=== PATIENT | female | born 1995 | race Caucasian/White ===

== ENCOUNTER 2017-07-06 09:01 | Day surgery (SDC) | payer OTHER ==
[2017-07-04 15:29] VITALS: BMI 22.1
[~2017-07-06 09:01] MED LIST: LACTATED RINGERS SOLUTION 1,000 ML IV SCH; ONDANSETRON 4 MG/2 ML VIAL IVPUSH PRN; PROMETHAZINE HCL 25 MG/1 ML VIAL IVPUSH PRN; oxyCODONE HCL 5 MG TABLET PO PRN
[2017-07-06] MEDS ORDERED: PROPOFOL 20 ML ONE ×3 (09:20)
[2017-07-06] MEDS ORDERED: ceFAZolin SODIUM 1 GM VIAL ONE (09:47)
[2017-07-06] MEDS ORDERED: ONDANSETRON 4 MG/2 ML VIAL ONE ×3 (09:50→12:27)
[2017-07-06] MEDS ORDERED: DEXAMETHASONE SOD PHOSPHATE 4 MG/1 ML VIAL ONE (09:50)
[2017-07-06] MEDS ORDERED: KETOROLAC TROMETHAMINE 30 MG/1 ML VIAL ONE (09:50)
[2017-07-06] MEDS ORDERED: MIDAZOLAM HCL 2 MG/2 ML SINGLE DOSE VIAL ONE ×2 (09:55→10:01)
[2017-07-06] MEDS ORDERED: DEXAMETHASONE SOD PHOSPHATE/PF 10 MG/ML SDV ONE (09:55)
[2017-07-06] MEDS ORDERED: ROPIVACAINE HCL 0.5% 30ML VIAL ONE (09:55)
[2017-07-06] MEDS ORDERED: SCOPOLAMINE HYDROBROMIDE 1 PATCH PATCH.TD72 ONE (10:01)
[2017-07-06] MEDS ORDERED: ACETAMINOPHEN INJECTION 100 ML IVPB ONE (10:01)
[2017-07-06] MEDS ORDERED: EPINEPHrine 1:1,000 1 MG/1 ML - 30ML VIAL (INJECTION) ONE (10:30)
--- NOTE | 2017-07-06 12:19 | OP ---
Operative Note - Note: Operative Date: 07/06/17 Pre-Operative Diagnosis: Right shoulder pain Operation: Diagnostic right shoulder arthroscopy with synovectomy and bursectomy Post-Operative Diagnosis: Same as Pre-op Surgeon: Giovanni Holland Manager Security: Becca Mariee Anesthesiologist/DISEASE AND INSECT CONTROL BOSS: Beto Wong Anesthesia: Local (block with LMA) Estimated Blood Loss (mls): 20 Fluid Volume Replaced (mls): 1,300 Operative Report Dictated: Yes
--- NOTE | 2017-07-06 12:21 | SURG ---
Surgery [employer] Superintendent Note [employer] Superintendent: Becca Mariee PA-C Date of Service: 07/06/17 Diagnosis: right shoulder pain Procedure: diagnostic right shoulder arthroscopy with burscectomy and synovectomy I was present for the entirety of the operative procedure. For further detail, please refer to operative report. Visit type - Case Type Case Type: Scheduled Admission - Emergency Emergency Visit: No - New patient This patient is new to me today: Yes Date on this admission: 07/06/17
[2017-07-06] MEDS ORDERED: ALBUTEROL SO4 18 GM HFA INHALER IH PRN (12:22)
[2017-07-06 13:59] VITALS: TEMP 98.6
[2017-07-06 14:51] VITALS: BP 108/65; PULSE 82
[2017-07-07] MEDS ORDERED: BUDESONIDE/FORMETEROL FUMARATE 160/4.5 mcg INHALER IH SCH (10:00)
[2017-07-07] MEDS ORDERED: NORETHINDRONE E ESTRADIOL IRON PO SCH (10:00)
--- NOTE | 2017-07-07 11:50 | OP ---
DATE OF OPERATION: 07/06/2017 PREOPERATIVE DIAGNOSIS: Right shoulder pain. POSTOPERATIVE DIAGNOSIS: Right shoulder pain. PROCEDURE: Right shoulder arthroscopy, partial synovectomy, and subacromial decompression. SURGEON: Karina Cowart MD ANESTHESIA: General. POSTOPERATIVE CONDITION: Stable. COMPLICATIONS: None. CORE WINDER MACHINE OPERATOR: BRITTANY Yao. INDICATIONS: This is a pleasant young lady suffering from years of right shoulder pain. Despite MRI, she continued to have labral signs positive on her physical examination. She was treated with extensive physical therapy and multiple courses of oral medications, subacromial injection, which did provide some relief. Having failed to improve, we discussed the option of diagnostic arthroscopy and possible labral repair. I reviewed the surgery in detail including bleeding, infection, neurovascular injury, need for further surgery, postoperative pain and stiffness. We discussed that there was no definite pathology seen on any imaging study. While this is often indicative of no present, it is possible to have a false negative, and that is why the procedure is worth considering. After addressing all the patients and the familys questions and concerns, they voiced understanding and elected to proceed. DESCRIPTION OF PROCEDURE: The patient was brought to the operating room after administration of a regional block in the preoperative holding area. The right upper extremity was prepped and draped in the usual sterile fashion. A preoperative dose of antibiotics was given, and the usual time-out procedure was performed. The preoperative physical examination demonstrated full range of motion of the shoulder. There was a 1+ sulcus sign. There was 1+ anterior drawer. Negative posterior load and shift. Negative jerk test. The standard posterior viewing portal was now established. The arthroscopic was then passed into the glenohumeral joint. Diagnostic arthroscopy was performed. Examination of the humeral surface demonstrated no cartilage lesions. Examination of the glenoid demonstrated no cartilage lesions. There was a thickened band of capsule in the area of the middle glenohumeral ligament, which was attached directly to the labrum. However, there was no troy labral tear seen. An anterior portal was now established. Superior labrum was probed, and while it was somewhat hypermobile, there was no tearing seen. The capsule adjacent to the anterior-superior labrum was somewhat indurated and frayed with some type of irritation or impingement. Utilizing the shaver as well as electrocautery, this was gently debrided. The subscapularis was examined and found to have no tearing and no troy tendinosis. The biceps was examined and found to be located without tendinosis. The rotator cuff was examined and seemed to be intact without any troy tendinosis. Drive-through sign was negative. The axillary pouch was inspected and found to be unremarkable. After completion of this, the scope was withdrawn and replaced in the subacromial space. There was minimal ascites present. Shoulder bursa was resected, which was humeral head exposing the entirety of the rotator cuff. Shoulder was passed throughout a range of motion and inspected the entire rotator cuff, and no bursal-sided lesions were seen. At this point, the arthroscope was withdrawn from the joint. The portals were sutured using 4-0 Monocryl. Dermabond was then placed over the wounds. The patient was extubated and transferred to the recovery room in stable condition. KARINA COWART M.D. [facility]/[id number]
[2017-07-07] MEDS ORDERED: diazePAM 5 MG TABLET PO SCH (12:30)
== END 2017-07-06 15:02 | disposition home or self-care (01) ==
LOC: FASU 09:01
PROVIDERS: ATTEND Orthopaedic Surgery Sports Medicine
PROC: 0RBJ4ZZ Excision of Right Shoulder Joint, Percutaneous Endoscopic Approach (ICD-10-PCS; principal; 2017-07-06 11:12)
DX: M25.511 Pain in right shoulder (principal)
CPT/HCPCS: 84703; 94760